=== PATIENT | male | born 1995 | race Caucasian/White ===

== ENCOUNTER 2022-12-27 17:09 | Emergency (ER) | payer SELFPAY ==
[~2022-12-27] VITALS: Ht 175.3 cm; Wt 85.0 kg
[2022-12-27 22:00] VITALS: BP 139/75
[2022-12-27 23:24] LABS: BASOPHILS % 0.6 % (0.0-2.0); HEMATOCRIT. 42.7 % (42.0-52.0); HEMOGLOBIN. 14.6 g/dL (14.0-18.0); LYMPHOCYTES % 38.4 % (20.0-50.0); MEAN CORPUSCULAR HEMOGLOBIN 30.9 pg (28.0-32.0); MEAN CORPUSCULAR VOLUME 90.7 fL (80.0-94.0); MEAN PLATELET VOLUME 7.2 fl (7.4-10.4); MONOCYTES % 8.8 % (2.0-8.0); NEUTROPHILS % 50.2 % (40.0-76.0); PLATELET 387 x1000/uL (130-400); RED BLOOD CELL COUNT 4.71 mill/uL (4.7-6.1); RED CELL DISTRIBUTION WIDTH 12.8 % (11.6-14.6)
[2022-12-27 23:28] LABS: CHLORIDE 107 mEq/L (98-107)
[2022-12-27 23:32] LABS: INR 1.1; PROTHROMBIN TIME 11.7 sec (9.6-11.0)
[2022-12-28] MEDS ORDERED: CEPH500T PO (00:32)
[2022-12-28] MEDS ORDERED: SULF1TAB48 PO (00:32)
== END 2022-12-28 00:53 | disposition home or self-care (01) ==
LOC: ER 17:09
DX: L02.31 Cutaneous abscess of buttock (principal)
CPT/HCPCS: 36415; 74176; 76604; 80053; 85025; 99284